=== PATIENT | male | born 1975 ===

== ENCOUNTER → 2019-10-16 12:48 | Outpatient (CLI) | payer OTHER, SELFPAY ==
--- NOTE | ~2019-10-16 | XR_ITS ---
XR chest 2V DATE: 10/16/2019 13:03 INDICATION: Chest pain TECHNIQUE: 2 views COMPARISON: 10/13/2015 2 view chest FINDINGS: Normal heart size. No hilar or mediastinal enlargement. No pulmonary infiltrate or consol idation, pulmonary vascular congestion or pleural effusion or pneumothorax. IMPRESSION: No active cardiopulmonary disease Reviewed, dictated and finalized at location B.
== END ==
PROVIDERS: PCP Family Medicine; Visit Provider Family Medicine
DX: R07.9 Chest pain, unspecified (principal)
CPT/HCPCS: 71046

== ENCOUNTER 2020-09-18 08:51 | Outpatient (CLI) | payer OTHER, SELFPAY ==
[2020-09-18 09:04] LABS: Hematocrit 43.1 % (40.0-54.0); Hemoglobin 14.5 g/dL (14.0-18.0); Mean Corpuscular HGB Conc 33.6 g/dL (32.0-36.0); Mean Corpuscular Hemoglobin 29.6 pg (27.0-31.0); Mean Platelet Volume 8.3 fl (8.7-11.0); Platelet Count Result 258 K/mm3 (150-420); Red Cell Distribution Width 11.7 % (11.6-14.4); White Blood Count 6.9 K/mm3 (4.8-10.8)
[2020-09-18 10:09] LABS: Alanine Aminotransferase 58 U/L (16-63); Albumin Level 3.8 g/dL (3.4-5.0); Alkaline Phosphatase 61 U/L (46-116); Anion Gap 8 mmol/L (8-16); Aspartate Amino Transferase 20 U/L (15-37); Bilirubin,Total 0.4 mg/dL (0.00-1.00); Blood Urea Nitrogen 22 mg/dL (7-18); Calcium 9.1 mg/dL (8.5-10.1); Carbon Dioxide 26 mmol/L (21-32); Chloride 106 mmol/L (98-108); Cholesterol 221 mg/dL (0-200); Estimated Glomerular Filt Rate > 60; Glucose 88 mg/dL (70-99); HDL Direct 51 mg/dL (40-60); LDL Cholesterol Calculated 148 mg/dL (<130); Osmolality Calculated 292 mOsm/kg (285-295); Potassium 4.7 mmol/L (3.5-5.1); Sodium 140 mmol/L (136-145); Total Protein 6.8 g/dL (6.4-8.2); Triglycerides 108 mg/dL (0-150)
== END 2020-09-18 08:52 | disposition home or self-care (01) ==
LOC: CHSLAB 08:54
PROVIDERS: PCP Family Medicine; Visit Provider Family Medicine
DX: Z00.00 Encounter for general adult medical examination without abnormal findings (principal)
CPT/HCPCS: 36415; 80053; 80061; 85027

== ENCOUNTER 2021-11-07 12:42 | Outpatient (CLI) | payer OTHER, SELFPAY ==
--- NOTE | 2021-11-13 14:29 | WPDPFTINT ---
PFT Procedure Performed PFT Procedure Performed Spirometry with Pre/Post Bronchodilator Plethysmography (Lung Vol) Diffusing Cap (DLCO) Flow Vol Loop PFT Interpretation DOS: 11/07/2021 REQUESTING: Dr Gonzales REASON FOR TESTING: Bronchitis PULMONARY FUNCTION TESTS Results are reliable and reproducible. Spirometry: the pre bronchodilator FEV1 is 75% predicted, 2.94 L. The FVC pre bronchodilators 86% predicted, 4.21 L. The FEV1/ FVC ratio is 70% predicted. the FEF 25-75% is 45% predicted, 1.93 L. after bronchodilator administration there is a 4% increase in the FVC, 11% increase in the FEV1 and 32% increase in the small airways flows. Post bronchodilator the FEF 25-75% is 60% predicted, 2.54 L, an absolute increase of 610 mL. Lung volumes: the total lung capacity is 106% predicted, 7.5 L, normal. Slow vital capacity is 86%, no change from forced vital capacity. The residual volume is increased 150% predicted, 3.29 L. The RV/TLC is increased 44% predicted. This is consistent with air trapping. The functional residual volume is 120% predicted, 3.99 L. Airway resistance is increased. Diffusion: DLCO is 88%, normal. Flow volume loop: Normal. IMPRESSION: There is a mild obstructive ventilatory impairment which is severe in the small airways with a robust response to bronchodilator in the small airways; moderate air trapping and a normal diffusion impairment. In the proper clinical setting, this pattern may represent asthma. Susu Guillen MD
== END 2021-11-07 12:43 | disposition home or self-care (01) ==
LOC: CHSCARD 12:44
PROVIDERS: PCP Family Medicine; Visit Provider Family Medicine
DX: J40 Bronchitis, not specified as acute or chronic (principal)
CPT/HCPCS: 94060; 94726; 94729

== ENCOUNTER 2024-10-24 16:46 | Outpatient (CLI) | payer OTHER, SELFPAY ==
--- NOTE | ~2024-10-24 | XR_ITS ---
Supine and upright views of the abdomen Clinical history: Abdominal pain Findings: Bowel gas pattern is nonspecific. No evidence for obstruction or free air. No abnormal mass lesion or calcification is seen. Osseous structures are intact. Impression: No significant abnormality is seen. Reviewed, dictated and finalized at [facility]. Impression: No significant abnormality is seen.
--- NOTE | ~2024-10-24 | XR_ITS ---
Lumbosacral Spine: AP and lateral views Clinical History: Pain Findings: The normal lordotic curve is maintained. The vertebral bodies and posterior elements are i ntact. There is degenerative disc narrowing at L5-S1. There is moderate degenerative disc narrowing a t L3-L4. Mild facet arthropathy present. The sacroiliac joints are normally outlined. Impression: Mild degenerative spondylosis overall, as detailed above. Reviewed, dictated and finalized at location M. Impression: Mild degenerative spondylosis overall, as detailed above.
[2024-10-24 17:08] LABS: Add Urine Microscopic? NO; Appearance Urine Clear (Clear); Bilirubin Urine Negative (Negative); Blood Urine Negative (Negative); Color Urine Light Yellow (Yellow); Glucose Urine UA Negative (Negative); Ketones Urine Negative (Negative); Leukocyte Esterase Ur Negative LEU/UL (Negative); Nitrate Urine Negative (Negative); Protein Urine Negative (Negative); Urobilinogen Urine 0.2 mg/dL (0.2-1.0)
--- OUTSIDE RECORDS SUMMARY | 2024-10-24 17:10 | XMS_ITS | CONTINUITY OF CARE DOCUMENT ---
Author Name suze arciniega Address Unknown Organization [facility] Address [address] [place] [address] Phone [phone] Care Team Providers Care Ssis Developer Name Role Phone suze arciniega Unavailable Unavailable INSURANCE PROVIDERS Payer name Policy type / Coverage type [place] red libertarian ID [facility] [id number]
[2024-10-24 17:41] LABS: Alanine Aminotransferase 58 U/L (16-63); Albumin Level 3.6 g/dL (3.4-5.0); Alkaline Phosphatase 72 U/L (46-116); Anion Gap 9 mmol/L (4-12); Aspartate Amino Transferase 20 U/L (15-37); Bilirubin,Total 0.2 mg/dL (0.00-1.00); Blood Urea Nitrogen 21 mg/dL (7-18); Calcium 9.3 mg/dL (8.5-10.1); Carbon Dioxide 30 mmol/L (21-32); Chloride 106 mmol/L (98-108); Estimated Glomerular Filt Rate > 60; Glucose 81 mg/dL (70-99); Osmolality Calculated 302 mOsm/kg (285-295); Potassium 4.9 mmol/L (3.5-5.1); Sodium 145 mmol/L (136-145); Total Protein 6.9 g/dL (6.4-8.2)
[2024-10-24 18:11] LABS: Erythrocyte Sedimentation Rate 14 mm/hr (0-15)
[2024-10-26 17:10] LABS: Thyroid Stimulating Hormone 2.95 uIU/mL (0.36-3.74)
== END 2024-10-24 16:47 | disposition home or self-care (01) ==
LOC: CHSLAB 16:47
PROVIDERS: PCP Nurse Practitioner Family; Visit Provider Nurse Practitioner Family
DX: M54.50 Low back pain, unspecified (principal); R53.83 Other fatigue; R37 Sexual dysfunction, unspecified; R10.9 Unspecified abdominal pain; M43.06 Spondylolysis, lumbar region
CPT/HCPCS: 36415; 72100; 74018; 80053; 81003; 84402; 84403; 84443; 85652

== ENCOUNTER 2025-06-18 08:24 | Outpatient (CLI) | payer OTHER, SELFPAY ==
--- NOTE | ~2025-06-18 | XR_ITS ---
EXAMINATION: XR knee LT 3V, 06/18/2025 8:30 MANAGER RISK MANAGEMENT HISTORY: Pain in Left Knee COMPARISON: No comparisons available. Findings: No acute fracture or malalignment. No significant degenerative changes. Soft tissues unremarkable. Impression: No acute fracture or malalignment. Reviewed, dictated and finalized at location P. GER RISK MANAGEMENT Impression: No acute fracture or malalignment.
--- OUTSIDE RECORDS SUMMARY | 2025-06-18 08:42 | XMS_ITS | Data Portability ---
Author Organization [facility] OFFICE Address [address] [place] [address] Care Team Providers Care Waste Water Treatment Plant Operator Name Role Phone CHAPIS WOODRUFF Primary Care Provider [phone] CHAPIS WOODRUFF Primary Care Provider [phone] Assessment No assessment recorded. Plan of Treatment Reminders Order Date Submit Date Provider Last Modified By Organization Details Last Modified Time Details Appointments None recorded. Lab None recorded. Referral None recorded. Procedures None recorded. Surgeries None recorded. Imaging electrocard iogram 2019 020 BROOK Not available 0 09:51:48 Medication Orders None recorded. Patient TargetsNo targets recorded. Patient InstructionsNo instructions recorded. Reason for Referral None Reported. Results Created Date Observation Date Name Description Value Unit Range Abnormal Flag Note LastModifiedBy Organization Detail LastModifiedTime 12/08/19 20 12/07/2019 elect dahiana diogr am No observ ation record ed. Not Available 12/08 18:44:46 02/21/20 20 02/13/2020 stres s echoc ardio gram No observ ation record ed. [email or web address] Not Available 2019 10:39:17 Result Notes None recorded. Problems Name Problem SNOMED Code Status Onset Date Resolution Date Notes Provider Name and Address Organization Details Recorded Time [facility] 68547595 [facility] [place] [facility] 0 17:00:05 Sleep apnea 60342602 Active Sandra Tashaani null, [place] - [facility] 0 17:00:36 Hearing loss 21203732 Active Sandra Candidoani null, [place] - [facility] 0 17:00:55 Ringing in ear 472306492 Active 020 Sandra Sosa [facility] 0 17:01:08 Problem Notes None recorded. Medical Equipment None Reported. Allergies No known drug allergies Medications Name Sig Start Date Stop Date Status Note LastModified by Organization Details LastModified Time azithromycin 250 mg tablet 12/06 completed Not Available Not Available Not Available benzonatate 100 mg capsule 12/06 completed Not Available Not Available Not Available Advil 200 mg tablet Take 1 tablet every 6 hours by oral route. active prn Not Available Not Available No t Available omeprazole 20 mg capsule,delay ed release 12/06 completed Not Available Not Available Not Available Vitals Date Recorded Body height Body mass index (BMI) Body weight Heart rate Respiratory rate Oxygen saturation Systolic And Diastolic Provider Name and Address Organization Details Last Updated DateTime 0 180.34 cm 34.3 kg/m2 015576. 72 g 94 /min 18 /min 98 % 124/80 mm[Hg] Sandra Sosa [facility] 0 16:58:18 Date Recorded Body height Body mass index (BMI) Body weight Heart rate Oxygen saturation Systolic And Diastolic Provider Name and Address Organization Details Last Updated DateTime 0 180.34 cm 30 kg/m2 92921.3 6 g 74 /min 97 % 122/80 mm[Hg] Maxwell Foster [facility] 0 15:56:57 Social History Question Answer Notes LastModified by Organizat ion Details LastModified Time Tobacco Smoking Status Former Smoker Sandra Sosa [facility] 12/07/2019 17:01:56 Do You Have An Advance Directive? No [email or web address] Information not available 12/07/2019 What Is Your Level Of Caffeine Consumption? Occasional Information not available 12/07/2019 What Type Of Diet Are You Following? REGULAR Information not available 12/07/2019 Which Illicit Or Recreational Drugs Have You Used? No Information not available 12/07/2019 Live Alone Or With Others? With Others [email or web address] Information not available 12/07/2019 Marital Status Informatio n not available 12/07/2019 How Many Children Do You Have? 2 Information not available 12/07/2019 At What Age Did You Start Smoking Tobacco? 15 Information not available 12/07/2019 How Much Tobacco Do You Smoke? 2 PPD Information not available 12/07/2019 General Stress Level Low Information not available 12/07/2019 How Many Years Have You Smoked Tobacco? 27 Information not available 12/07/2019 Sex: Unknown Functional Status Question Answer Note LastModified by Organizat ion Details LastModified Time What is your level of alcohol consumption? None Information not available 12/07/2019 Do you or have you ever used smokeless tobacco? Former smokeless tobacco user Information not available 02/21/2020 Do you or have you ever used e-cigarettes or vape? Never used electronic cigarettes Information not available 02/21/2020 What is your exercise level? Moderate [email or web address] Information not available 12/07/2019 Mental Status None recorded. Family History Relationship Description Onset Age of this Age Resolved Age Notes LastModified by Organization Details LastModified Time Father No current problems or disability Atrial fibril lation Not available 12/07/2019 17:01:32 Mother No current problems or disability hypert ension Not available 12/07/2019 17:01:49 Medical History Condition Response Sleep Apnea Y Past Encounters Encounter ID Performer Location Encounter Start Date Encounter Closed Date Diagnosis/Indication Diagnosis SNOMED-CT Code Diagnosis ICD10 Code Diagnosis IMO Codes Diagnosis Note [id number] MD Rene Kelly Office [address] [place] [address] 12/07/2019 16:25:24 12/07/2019 17:28:45 Obstructive sleep apnea syndrome 03275097 G47.33 COntinue CPAP Obesity 215347427 E66.9 Lost 30 pounds this year. Further weight loss encouraged Chest pain 03395025 R07. 9 With risk factors of prior tobacco abuse and obesity will proceed with stress echocardio gram for risk stratifica tion [id number] MD Rene Chaparro Office [address] [place] [address] 02/28/2020 15:43:02 02/28/2020 17:43:58 Chest pain 61448565 R07.9 Stress test negative for ischemia. 9 minutes and 30 seconds on Hemal protocol Obstructiv e sleep apnea syndrome 69846101 G47.33 COntinue CPAP Obesity 423339696 E66.9 Lost 30 pounds this year. Further weight loss encouraged Health Concerns Section Related Observation LastModified by Organization Detai ls LastModified Time None Recorded Concern Status LastModified by Organization Details LastModified Time None Recorded Advance Directives Directive N: Payers Insurance Date Sequence Insurance Name Policy Number Policy [place] Covered Member ID [place] Member ID Guarantor Name 02/07/2025 1 ELY Reynoso [id number] Brad Reynoso Notes Date Note Type Note Provider Name and Address Organization Details Recorded Time 12/07/2019 text/html 12/07/201944 year old gentle man with h/o obesity and NATHALIE came for cardiac evaluation with the chief complaints of chest pain around September but no recurrence since then. It was in the center of chest ,It was sharp in intensity lasted for couple of minutes not associated with shortness of breath or Dizziness. He started to eat healthy and lost 30 pounds and since then has no recurrence of chest pain and feels better No dyspnea on exertion. None exertional. NATHALIE on CPAP. Quit smoking in 2017, Father has A fib, Mother has HTN. Results from this visit, or from the past: 02/07/19-HDL-CHOL -51,GLU-97,UREA VFYI6IMU0-89,CREA T-0.88eGFR RBA-XZA-XXBH-105, eGFR WSWU-GFWCHJLB-557 ,BUN/CREAT,RAT-NO T APPLICABLE,SOD-13 9,POT-4.8,CHL-106 ,CAR-HEBERT-24,GENA-9 .3,PROTEN,TOT-6.7 ,ALB-4.0,ABHI-2.7, ALB/GLOB/RAT,1.5, BILIRUBIN,TOT,-0. 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 It was in the center of chest ,It was sharp in intensity lasted for couple of minutes not associated with shortness of breath or Dizziness. He started to eat healthy and lost 30 pounds and since then has no recurrence of chest pain and feels better He completed stress test and returns for results. He has no recurrence of chest pain since last visit. Today reports feeling better. Pt has lost 31 lbs since last visit and reports being active with exercise and work. He denied any chest pain, shortness of breath, orthopnea, dizziness, palpitation, or syncope. *Had negative SE done in 02/13/20 . No dyspnea on exertion. None exertional. NATHALIE on CPAP. Quit smoking in 2018, Father has A fib, Mother has HTN. Results from this visit, or from the past: 02/07/19-HDL-CHOL -51,GLU-97,UREA GUDQ3CQM8-43,CREA T-0.88eGFR JIB-YYL-HGNX-105, eGFR AMAS-NCLEKZTU-440 ,BUN/CREAT,RAT-NO T APPLICABLE,SOD-13 9,POT-4.8,CHL-106 ,CAR-HEBERT-24,GENA-9 .3,PROTEN,TOT-6.7 ,ALB-4.0,ABHI-2.7, ALB/GLOB/RAT,1.5, BILIRUBIN,TOT,-0. 3,ALK-PHOS-63, AST-19,ALT-46,TSH -2.14,CBC(INCLUD DIFF/PLT,WHT BL CELL COUNT-7.5 RED BL/CELL-4.87,HEMO -13.9,HEMAT,43.10 02/06/2019: WBC 7.5,RBC 4.87,HGB 13.9,HCT 43.1,PLT 286 12/07/2019 EKG ; normal Sinus Kgfzne3610/16/2019- Sinus rhythm,Normal ECG 02/13/20 STRESS ECHO: Negative stress echo. Good exercise tolerance. Hernan [place], [place] - [facility] 02/28/2020 19:25:31
== END 2025-06-18 08:25 | disposition home or self-care (01) ==
LOC: CHSIMG 08:27
DX: M25.562 Pain in left knee (principal)
CPT/HCPCS: 73562